=== PATIENT | female | born 1960 | race Two or more races ===

== ENCOUNTER 2022-08-28 12:43 | Outpatient (CLI) | payer MEDICARE, OTHER | END 2022-08-28 23:59 | disposition home or self-care (01) | LOC: LAB 12:43 | PROVIDERS: ATTEND Specialist | DX: Z01.812 Encounter for preprocedural laboratory examination (principal); Z20.822 Contact with and (suspected) exposure to COVID-19 | CPT/HCPCS: U0003; C9803 ==

== ENCOUNTER 2022-09-04 05:17 | Day surgery (SDC) | payer MEDICARE, OTHER ==
[2022-09-04] VITALS (7 sets, daily range): BP systolic 116–179; BP diastolic 75–86
--- NOTE | 2022-09-04 05:40 | NUR ---
FINANCIAL SALES ASSISTANT NOTE PT WALKS INTO THE UNIT BY HERSELF. PT IS A/O X 4, ABLE TO MAKE NEEDS KNOWN. PT IS IN RA TOLERATING WELL, BREATHING EVEN AND UNLABORED @ THIS TIME. PT MARTÍNEZ NO IV PRESENT. VITAL SIGNS TAKEN AND DOCUMENTED. BELONGING LIST ACCOUNTED FOR AND FILED IN PT CHART. PT DISROBE TO HOSPITAL GOWN. CONSENT FOR THE PROCEDURE IS TAKEN AND FILED ON THE PT CHART. ALL NEED ATTENDED. SAFETY MEASURES IS IN PLACE. BED IN LOWEST AND LOCKED POSITION. SIDE RAILS UP X 2. BEDSIDE TABLE AND CALL LIGHT IS EASY REACH. BED ALARM IS ON. WILL CONTINUE TO MONITOR PT ACCORDINGLY.
[2022-09-04] MEDS ORDERED: ANESTHESIA TRAY IN PYXIS 1 EA TRAY MC ONE (06:09)
[2022-09-04] MEDS ORDERED: BUPIVACAINE 0.5 % PF 150 MG/30 ML VIAL ONE ×2 (06:10→07:07)
[2022-09-04] MEDS ORDERED: POLYMYXIN B SULFATE 0 UNITS ONE (06:10)
[2022-09-04] MEDS ORDERED: FENTANYL PF 100MCG/2ML AMPUL ONE (07:06)
[2022-09-04] MEDS ORDERED: FAMOTIDINE/PF INJ 20 MG/2 ML VIAL IV ONE (07:07)
--- NOTE | 2022-09-04 09:30 | NUR ---
RN NOTE PATIENT BACK FROM SURGERY, TRANSPORTED VIA BED. S/P ARTHROTOMY OF THE RIGHT WRIST CARPOMETACARPAL JOINT WITH SOFT TISSUE INTERPOSITION ARTHROPLASTY. ALSO HAD A RIGHT INFRACLAVICULAR NERVE BLOCK BY ANESTHESIOLOGIST. PATIENT IS AWAKE, VERBALLY RESPONSIVE AND ABLE TO MAKE NEEDS KNOWN. DRESSING ON RIGHT HAND/ARM INTACT. NOTED WITH IV ACCESS ON LEFT HAND #20G, INTACT AND PATENT. SAFETY MEASURE IN PLACE. BED IN LOW AND LOCKED POSITION, SIDE RAILS UP X2, CALL LIGHT PLACED WITHIN EASY REACH. WILL CONTINUE TO MONITOR PATIENT.
--- NOTE | 2022-09-04 12:53 | NUR ---
PAYROLL AUDITOR NOTE PATIENT DISCHARGED HOME IN STABLE CONDITION. PATIENT REMAINS AWAKE, A/O X4, VERBALLY RESPONSIVE AND NO SIGNS OF ACUTE DISTRESS NOTED. IV ACCESS ON LEFT HAND REMOVED, NO BLEEDING NOTED. ARM NAME BAND REMOVED. ALL BELONGINGS ACCOUNTED FOR, FORM SIGNED BY PATIENT. DISCHARGE INSTRUCTIONS AND HEALTH TEACHINGS PROVIDED TO PATIENT. WILL NEED TO FOLLOW-UP WITH DR. GERARDO IN 2 WEEKS. PATIENT LEFT UNIT @1245, ACCOMPANIED BY EVA CHEN TO THE LOBBY VIA W/C. PATIENT PICKED UP BY [facility] VIA PRIVATE CAR. CN AWARE OF DISCHARGE.
== END 2022-09-04 18:00 | disposition home or self-care (01) ==
LOC: DS 05:17 → UNDOADMIN 05:19 → MED 05:19 → UNDODISIN 12:47 → DS 18:00
PROVIDERS: ATTEND Specialist
DX: M19.031 Primary osteoarthritis, right wrist (principal); M65.841 Other synovitis and tenosynovitis, right hand; I10 Essential (primary) hypertension; E11.9 Type 2 diabetes mellitus without complications; J44.9 Chronic obstructive pulmonary disease, unspecified; Z96.642 Presence of left artificial hip joint; G89.4 Chronic pain syndrome; I25.10 Atherosclerotic heart disease of native coronary artery without angina pectoris; K21.9 Gastro-esophageal reflux disease without esophagitis; Z98.890 Other specified postprocedural states; Z79.899 Other long term (current) drug therapy
CPT/HCPCS: 25447; 25116; 87081; 82962 ×2; J0690; J3490 ×6; J1100; J2704; J3010; J2370; J2765; J1885; J2405; A6253; A4217; A4565; G0378

== ENCOUNTER 2023-09-04 08:42 | Day surgery (SDC) | payer MEDICARE, OTHER ==
[~2023-09-04 08:42] MED LIST: BUPIVACAINE 0.5 % PF 150 MG/30 ML VIAL ONE; LIDOCAINE 1% INJ 50 ML MDV IJ ONE
[2023-09-04] MEDS ORDERED: MIDAZOLAM HCL 2 MG/2ML VIAL ONE (10:11)
[2023-09-04] MEDS ORDERED: FENTANYL PF 100MCG/2ML AMPUL ONE ×2 (10:11)
[2023-09-04] MEDS ORDERED: LABETALOL HCL IV 100MG VIAL ONE (10:11)
[2023-09-04] MEDS ORDERED: BUPIVACAINE 0.5 % PF 150 MG/30 ML VIAL ONE (10:56)
[2023-09-04] MEDS ORDERED: MEPERIDINE25 MG SYR 25 MG/ML VIAL ONE (11:26)
== END 2023-09-04 13:08 | disposition home or self-care (01) ==
LOC: DS 08:42
PROVIDERS: ATTEND Specialist
DX: G56.01 Carpal tunnel syndrome, right upper limb (principal); J44.9 Chronic obstructive pulmonary disease, unspecified; I10 Essential (primary) hypertension; E11.9 Type 2 diabetes mellitus without complications; Z96.642 Presence of left artificial hip joint; Z98.890 Other specified postprocedural states; Z79.899 Other long term (current) drug therapy
CPT/HCPCS: 64718; 64721; 82962; A4565; A6402; J0690; J2175; J2250; J2405; J2704; J2765; J3010; J3490